=== PATIENT | female | born 1990 | race Caucasian/White ===

== ENCOUNTER 2024-12-30 14:24 | Outpatient (CLI) | payer OTHER, SELFPAY ==
[2024-12-30 15:01] LABS: Hematocrit 39.2 % (36-47); Hemoglobin 13.30 g/dL (11.27-16.99); Mean Corpuscular HGB Conc 33.9 g/dL (30-55); Mean Corpuscular Hemoglobin 31.6 pg (27-33); Mean Corpuscular Volume 93.1 fl (85-98); Nucleated Red Blood Cells % 0 %; Platelet Count 326 10^3/cmm (157-399); Red Blood Count 4.21 10^6/uL (3.85-5.65); White Blood Count 8.83 10^3/uL (3.29-11.43)
[2024-12-30 15:45] LABS: Alanine Aminotransferase 10 U/L (0-33); Albumin Level 4.1 g/dL (3.5-5.2); Alkaline Phosphatase 57 U/L (35-105); Anion Gap 13.7 (5-19); Aspartate Amino Transferase 16 U/L (0-32); Blood Urea Nitrogen 12 mg/dL (6-20); Calcium 8.8 mg/dL (8.5-10.5); Carbon Dioxide 26 mmol/L (22-29); Chloride 102 mmol/L (98-107); Cholesterol 142 mg/dL (0-200); Globulin 3.5 g/dL (1.3-4.6); Glucose 107 mg/dL (65-115); HDL Cholesterol 47 mg/dL (60-100); Osmolality Calculated 286 mOsm/kg (285-295); Potassium 3.7 mmol/L (3.5-5.1); Sodium 138 mmol/L (136-145); Thyroid Stimulating Hormone 2.17 uIU/mL (0.27-4.20); Total Protein 7.6 g/dL (6.6-8.7); Triglycerides 106 mg/dL (0-150)
== END 2024-12-30 14:25 | disposition home or self-care (01) ==
LOC: LAB 14:25
PROVIDERS: PCP Nurse Practitioner; Visit Provider Nurse Practitioner
DX: R53.83 Other fatigue (principal); E28.2 Polycystic ovarian syndrome; K58.9 Irritable bowel syndrome, unspecified
CPT/HCPCS: 36415; 80053; 80061; 82306; 84443; 85025